=== PATIENT | male | born 1950 | race Caucasian/White ===

== ENCOUNTER 2024-03-17 10:52 | Emergency (ER) | payer MEDICARE ==
[2024-03-17] MEDS ORDERED: Acetaminophen/Codeine 30-300mg Tablet ONE (12:04)
== END 2024-03-17 12:15 | disposition home or self-care (01) ==
LOC: BURERS 10:52
DX: S73.101A Unspecified sprain of right hip, initial encounter (principal); I10 Essential (primary) hypertension; J44.9 Chronic obstructive pulmonary disease, unspecified; X50.0XXA Overexertion from strenuous movement or load, initial encounter; Z79.899 Other long term (current) drug therapy
CPT/HCPCS: 99283